=== PATIENT | male | born 1970 | race Caucasian/White ===

== ENCOUNTER 2022-05-18 15:44 | Emergency (ER) | payer SELFPAY ==
[~2022-05-18] VITALS: Ht 190.5 cm; Wt 95.3 kg
[2022-05-18 15:50] VITALS: BP_SYST 136
--- NOTE | 2022-05-18 16:06 | NUR ---
Patient triaged and placed in waiting room. VSS and patient appears in no acute distress at this time. Accompanied by SELF, awaiting available bed, and MD notified of need for MSE.
--- NOTE | 2022-05-18 17:00 | NUR ---
PER MD REPORT, PT WAS SEEN AT 1700.
[2022-05-18 17:51] LABS: CALCIUM 9.9 mg/dL (8.4-11.0); CREATININE 0.94 mg/dL (0.55-1.30)
[2022-05-18 17:55] LABS: ALBUMIN 3.9 g/dL (3.4-4.8); TOTAL BILIRUBIN 0.7 mg/dL (0.0-1.0)
[2022-05-18 18:30] LABS: BILIRUBIN,URINE NEGATIVE (NEGATIVE); BLOOD, URINE NEGATIVE (NEGATIVE); CLARITY/URINE CLEAR (CLEAR); COLOR,URINE YELLOW (YELLOW); GLUCOSE,URINE NEGATIVE (NEGATIVE); KETONES,URINE NEGATIVE (NEGATIVE); LEUKOCYTE ESTERASE ,URINE NEGATIVE (NEGATIVE); NITRITE, URINE NEGATIVE (NEGATIVE); PROTEIN URINE NEGATIVE (NEGATIVE); UROBILINOGEN,URINE 0.2 (0.2-1.0)
--- NOTE | 2022-05-18 18:36 | NUR ---
PT COMES IN TO ER WITH C/O RIGHT LOWER ABDOMINAL PAIN RADIATING TO RT LOWER BACK , GRADUAL ONSET WORSNEING IN THE LAST TWO DAYS. REPORTS NOT HAVING A BM FOR SEVERAL DAYS. FEELS LIKE HE HAD A FEVER, NO CHILLS. TAKING IBUPROFEN AT HOME WITHOUT ANY RELIEF.
--- NOTE | 2022-05-18 19:50 | NUR ---
PT BACK FROM US. PT RESTING IN BED AWAKE. VSS. PT REPORTING 10/10 GROIN PAIN. SAFETY PRECAUTIONS IN PLACE. MD MADE AWARE OF PT PAIN, AWAITING NEW ORDER.
[2022-05-18 19:58] LABS: BASOPHILS % (AUTO) 0.3 % (0.0-2.0); EOSINOPHILS # (AUTO) 0.1 K/uL (0.0-0.4); EOSINOPHILS % (AUTO) 1.1 % (0.0-4.0); HEMOGLOBIN 18.1 g/dL (14.0-18.0); LYMPHOCYTES # (AUTO) 2.3 K/uL (1.0-5.5); LYMPHOCYTES % (AUTO) 18.9 % (20.5-51.5); MEAN CORPUSCULAR HEMOGLOBIN 30 pg (27-31); MEAN CORPUSCULAR HGB CONC 34 % (32-36); MEAN CORPUSCULAR VOLUME 89 fL (79.0-98.0); MONOCYTES # (AUTO) 0.8 K/uL (0.0-1.0); MONOCYTES % (AUTO) 6.3 % (1.7-9.3); NEUTROPHILS % (AUTO) 73.4 % (40.0-70.0); PLATELET COUNT (AUTO) 273 K/uL (130-430); RED CELL DISTRIBUTION WIDTH 13.1 % (9.0-15.0); WHITE BLOOD COUNT (AUTO) 12.3 K/uL (4.8-10.8)
[2022-05-18] MEDS ORDERED: KETOROLAC TROMETHAMINE 60 MG/2 ML VIAL IM ONE (20:00)
[2022-05-18] MEDS ORDERED: CIPR500T5 PO (20:53)
[2022-05-18] MEDS ORDERED: NAPR-690 PO (20:53)
[2022-05-18 20:57] VITALS: BP_SYST 120
--- NOTE | 2022-05-18 20:57 | NUR ---
Patient given written and verbal discharge instructions and verbalizes understanding. ER DR. PARADA discussed with patient the results and treatment provided. Patient in stable condition. ID arm band removed. Rx of CIPRO AND NAPROXEN given. Patient educated on pain management and to follow up with PMD. Pain Scale 0. Opportunity for questions provided and answered. Medication side effect fact sheet provided.
== END 2022-05-18 20:57 | disposition home or self-care (01) ==
LOC: SED 15:44
DX: N45.1 Epididymitis (principal); N50.811 Right testicular pain; Z79.899 Other long term (current) drug therapy
CPT/HCPCS: 99285; 74176; 80053; 85025; 36415; 76376; 76870; 96372; 81003; J1885